=== PATIENT | female | born 1940 ===

== ENCOUNTER 2018-07-05 08:17 | Day surgery (SDC) | payer MEDICARE ==
--- NOTE | 2018-07-03 14:00 | HP ---
Amended report to enter cosigning physician. PREOPERATIVE HISTORY AND PHYSICAL: DATE OF SURGERY/ADMISSION: 07/05/18 DATE OF OFFICE VISIT/ENCOUNTER: 06/13/18 ATTENDING SURGEON: Jyothi Sullivan MD* (dictated by INNA Branch). PROCEDURE: Right wrist carpal tunnel release. HISTORY OF PRESENT ILLNESS: This is a 77-year-old female who complains of numbness and tingling in her bilateral hands, worse on the right than on the left. She has had trouble for several years. She had a nerve conduction study done 6 years ago, which showed bilateral mild carpal tunnel syndrome. The symptoms have progressed significantly recently especially in her right hand. She would now like to have treatment for it. She denies any specific injury and has worn braces over time, which are minimally helpful. She has trouble when sleeping, driving, holding a book, and playing tennis. She is interested in pursuing surgical intervention at this time. Her diver assistant is Dr. Scott from [place], and we will receive cardiac clearance before proceeding with surgery. PAST MEDICAL HISTORY: 1. History of atrial fibrillation, arrhythmias. 2. Arthritis. 3. History of breast cancer. 4. History of a questionable TIA with plaque buildup in carotid arteries. 5. History of ventricular tachycardia. PAST SURGICAL HISTORY: 1. Mastectomy in 2015. 2. Breast reconstruction. 3. Right shoulder surgery. 4. Breast lumpectomy. 5. Hysterectomy. CURRENT MEDICATIONS: 1. Arimidex 1 mg daily. 2. Aspirin 81 mg daily. 3. Benadryl Allergy 25 mg 1 tab daily p.r.n. 4. Centrum Silver Ultra daily. 5. Crestor 10 mg daily. 6. GNP Melatonin 3 mg daily. 7. Nadolol 20 mg daily. ALLERGIES: No known drug allergies. FAMILY MEDICAL HISTORY: Heart disease, stroke, melanoma. SOCIAL HISTORY: The patient is a retired teacher. She denies tobacco use and recreational drug use. She drinks alcohol on occasion. REVIEW OF SYSTEMS: Negative for general, cephalic, cardiovascular, respiratory , GI, , other musculoskeletal, integumentary, endocrine, neurologic, and hematologic symptoms. Infectious disease is negative for MRSA, hepatitis C, HIV. PHYSICAL EXAMINATION GENERAL: Well-developed, well-nourished 77-year-old female in no acute distress. VITAL SIGNS: Height 5 feet 3 inches, weight 126 pounds, pulse rate 58, blood pressure 122/78. HEENT: Normocephalic, atraumatic. Pupils are equal, round, and reactive to light and accommodation. Extraocular movements are intact. Throat is clear. NECK: Supple. No palpable lymph nodes. PULMONARY: Lungs are clear to auscultation bilaterally. No wheezes, rales, or rhonchi. CARDIOVASCULAR: Regular rate and rhythm. S1, S2. No murmurs, rubs, or gallops. No edema. ABDOMEN: Positive bowel sounds, soft, nontender. NEUROLOGIC: Alert and oriented x3. Cranial nerves II through XII are intact. MUSCULOSKELETAL: On exam of her bilateral hands, she has mild thenar wasting in both the right and left hands and weakness with thumb abduction. She has good motion in her fingers and intact sensation to light touch throughout the hand. Skin is intact. She has a positive median nerve compression test, more significant on the right than on the left. IMPRESSION: Bilateral carpal tunnel syndrome, more so on the right than on the left. PLAN: The patient is scheduled to undergo a right wrist carpal tunnel release with Dr. Sullivan on 07/05/18. She will return to the office 10 days postop for followup and suture removal. A prescription for Ultracet was e-scribed to the patient's pharmacy for postoperative pain management. INNA BRANCH [id number]/[facility] #: [id number] RUPALI
[~2018-07-05 08:17] MED LIST: Acetaminophen TAB* 325 MG ONE; Acetaminophen TAB* 325 MG PO ONE; Buffered Lidocaine 1% SYRIN* 1 ML/SYRINGE INTRADERM ONE; Gabapentin CAP(*) 300 MG ONE; Lactated Ringers 1000 ML Bag* 1,000 ML IV SCH; Lidocaine 1% INJ* 10 MG/ML 30 ML SDV ONE
[2018-07-05] MEDS: Gabapentin CAP(*) 300 MG PO ONE ×2 (08:48→09:03)
[2018-07-05] MEDS ORDERED: Naloxone* 0.4 MG/ML 1 ML VIAL IV PRN (09:35)
[2018-07-05] MEDS ORDERED: Ondansetron INJ* 2 MG/ML VIAL IV PRN (09:35)
[2018-07-05] MEDS ORDERED: fentaNYL* 50 MCG/ML 2 ML VIAL (100 MCG VIAL) ONE (09:41)
[2018-07-05] MEDS ORDERED: Propofol* 10 MG/ML 20 ML BTL ONE (09:42)
[2018-07-05] MEDS ORDERED: Lidocaine 2% PF * 5 ML VIAL ONE (09:42)
[2018-07-05 11:29] VITALS: BP 126/67
--- NOTE | 2018-07-05 13:29 | OP ---
DATE OF OPERATION: 07/05/18 [facility] DATE OF : 40 SURGEON: Jyothi Sullivan MD PROGRAMMER OPERATOR NUMERICAL CONTROL: INNA Branch ANESTHESIA: Local MAC. PRE-OP DIAGNOSIS: Right carpal tunnel syndrome. POST-OP DIAGNOSIS: Right carpal tunnel syndrome. OPERATIVE PROCEDURE: Right carpal tunnel release. ESTIMATED BLOOD LOSS: Zero. TOURNIQUET TIME: Approximately 10 minutes. INDICATIONS FOR PROCEDURE: Syeda is a 77-year-old female with numbness and tingling in the median nerve distribution of the right hand. She presents for right carpal tunnel release. DESCRIPTION OF PROCEDURE: The patient was brought to the operating room, was given a sedation anesthetic and a local infiltration of 10 cc of 1% plain lidocaine in the palm of her right hand. The skin of her right hand and forearm was prepped and draped in the usual sterile fashion. The hand and forearm were exsanguinated and the tourniquet elevated to 250 mmHg. A longitudinal incision was made in the palm in line with the ring finger. We dissected through the subcutaneous tissue down to the transverse carpal ligament. The ligament was divided sharply with a knife and then more proximally with the scissors. The nerve was dissected free from the surrounding tissue, and there is an area of moderate compression at the mid portion of the ligament. The wound was irrigated and the skin edges reapproximated with 4-0 nylon sutures. The wound was dressed with Xeroform, 4x4 , Webril and an Byron wrap. The patient tolerated the procedure well and was brought to the recovery room in good condition. [id number]/[facility] #: [id number] [facility] CENTERLuisa
== END 2018-07-05 11:22 | disposition home or self-care (01) ==
LOC: OREAST 08:17
PROVIDERS: ATTEND Orthopaedic Surgery
DX: G56.01 Carpal tunnel syndrome, right upper limb (principal); I47.2 Ventricular tachycardia; I47.1 Supraventricular tachycardia; E78.5 Hyperlipidemia, unspecified; Z85.3 Personal history of malignant neoplasm of breast; M19.90 Unspecified osteoarthritis, unspecified site; I10 Essential (primary) hypertension; I70.90 Unspecified atherosclerosis; Z87.891 Personal history of nicotine dependence; G47.33 Obstructive sleep apnea (adult) (pediatric)
CPT/HCPCS: A9270-GY; J2704; J3010

== ENCOUNTER 2018-10-15 06:32 | Day surgery (SDC) | payer MEDICARE, BC ==
--- NOTE | 2018-10-02 10:06 | HP ---
AMENDED REPORT NOW INCLUDES DESIGNATED COSIGNER PREOPERATIVE HISTORY AND PHYSICAL: DATE OF SURGERY/ADMISSION: 10/15/18 DATE OF OFFICE VISIT/ENCOUNTER: 09/30/18 ATTENDING SURGEON: Jyothi Sullivan MD * (DICTATED BY INNA MARTÍNEZ) PROCEDURE: Left wrist carpal tunnel release. HISTORY OF PRESENT ILLNESS: This is a 77-year-old female who complains of numbness and tingling in her left hand ongoing for several years that has progressively worsened. She had a nerve conduction study done 6 years ago, which showed mild carpal tunnel syndrome at that time, but the symptoms have progressed significantly recently. She denies any specific injury and has worn braces over time, which are minimally helpful. She has trouble with sleeping, driving, holding a book, and playing tennis. She had a right carpal tunnel release performed in June of 2018 and did quite well with that. She has now consented to proceed with a left wrist carpal tunnel release. Her fleet sales manager is Dr. Scott from [place], and we will receive cardiac clearance before proceeding with surgery. PAST MEDICAL HISTORY: 1. History of atrial fibrillation/arrhythmias. 2. Arthritis. 3. History of breast cancer. 4. History of a questionable TIA with plaque buildup in carotid arteries. 5. History of ventricular tachycardia. PAST SURGICAL HISTORY: 1. Mastectomy in 2015. 2. Breast reconstruction. 3. Right shoulder surgery. 4. Breast lumpectomy. 5. Hysterectomy. 6. Right carpal tunnel release. CURRENT MEDICATIONS: 1. Arimidex 1 mg daily. 2. Aspirin 81 mg daily. 3. Benadryl Allergy 25 mg 1 tab daily p.r.n. 4. Centrum Silver Ultra daily. 5. Crestor 10 mg daily. 6. GNP Melatonin 3 mg daily. 7. Nadolol 20 mg daily. ALLERGIES: No known drug allergies. FAMILY MEDICAL HISTORY: Heart disease, stroke, melanoma. SOCIAL HISTORY: The patient is a retired teacher. She denies tobacco use and recreational drug use. She drinks alcohol on occasion. REVIEW OF SYSTEMS: Negative for general, cephalic, cardiovascular, respiratory , GI, , other musculoskeletal, integumentary, endocrine, neurologic, and hematologic symptoms. Infectious Disease: Negative for MRSA, hepatitis C, HIV. PHYSICAL EXAMINATION GENERAL: Well-developed, well-nourished 77-year-old female, in no acute distress. VITAL SIGNS: Height 5 feet 3 inches, weight 127 pounds, pulse rate 60, blood pressure 130/80. HEENT: Normocephalic, atraumatic. Pupils are equal, round, and reactive to light and accommodation. Extraocular movements are intact. Throat is clear. NECK: Supple. No palpable lymph nodes. PULMONARY: Lungs are clear to auscultation bilaterally. No wheezes, rales, or rhonchi. CARDIOVASCULAR: Regular rate and rhythm. S1, S2. No murmurs, rubs, or gallops. No edema. ABDOMEN: Positive bowel sounds, soft, nontender. NEUROLOGIC: Alert and oriented x3. Cranial nerves II through XII are intact. MUSCULOSKELETAL: On exam of her left wrist/hand, she has mild thenar wasting and weakness with thumb abduction. She has good motion in her fingers and intact sensation to light touch throughout the hand. Skin is intact. She has a positive median nerve compression test. Negative Tinel's at the median nerve. IMPRESSION: Left carpal tunnel syndrome. PLAN: The patient is scheduled to undergo a left wrist carpal tunnel release with Dr. Sullivan on 10/15/18. She will return to the office 10 days postop for followup and suture removal. The patient will plan on a using [id number] Tylenol and/or ibuprofen for postoperative pain management. INNA MARTÍNEZ [id number]/[facility] #: [id number] [facility]OSPITALLuisa
[~2018-10-15 06:32] MED LIST changes: -Acetaminophen TAB* 325 MG ONE; -Acetaminophen TAB* 325 MG PO ONE; -Gabapentin CAP(*) 300 MG ONE; -Lidocaine 1% INJ* 10 MG/ML 30 ML SDV ONE
[2018-10-15] MEDS ORDERED: Lidocaine 1% INJ* 10 MG/ML 30 ML SDV ONE (07:09)
[2018-10-15] MEDS ORDERED: Midazolam* 1 MG/ML 2 ML VIAL (2 MG) ONE (07:23)
[2018-10-15] MEDS ORDERED: Propofol* 10 MG/ML 20 ML BTL ONE ×2 (07:23→07:24)
[2018-10-15] MEDS ORDERED: oxyCODONE TAB* 5 MG TAB PO PRN (07:54)
[2018-10-15] MEDS ORDERED: Ketorolac INJ* 30 MG/ML 1 ML VIAL IV PRN (07:54)
[2018-10-15] MEDS ORDERED: Ondansetron ODT TAB* 4 MG PO PRN (07:54)
[2018-10-15] MEDS ORDERED: Naloxone* 0.4 MG/ML 1 ML VIAL IV PRN (07:54)
[2018-10-15] MEDS ORDERED: Acetaminophen TAB* 325 MG PO PRN (07:54)
[2018-10-15 08:51] VITALS: BP 124/73
--- NOTE | 2018-10-15 10:54 | OP ---
CC: Dr. Sullivan OPERATIVE REPORT: DATE OF OPERATION: 10/15/18 DATE OF : 40 SURGEON: Jyothi Sullivan MD MARINE SURVEYOR: INNA Branch ANESTHESIA: Local MAC. PRE-OP DIAGNOSIS: Left carpal tunnel syndrome. POST-OP DIAGNOSIS: Left carpal tunnel syndrome. OPERATIVE PROCEDURE: Left carpal tunnel release. ESTIMATED BLOOD LOSS: Zero. TOURNIQUET TIME: Approximately 10 minutes. INDICATIONS FOR PROCEDURE: Syeda is a 77-year-old female who has numbness and tingling in the median nerve distribution of her left hand. She presents for left carpal tunnel release. DESCRIPTION OF PROCEDURE: The patient was brought to the operating room, was given a sedation anesth etic and a local infiltration of 10 cc of 1% plain lidocaine in the palm of her left hand. The skin of her left hand and forearm was prepped and draped in the usual sterile fashion. The hand and forea rm were exsanguinated and the tourniquet elevated to 250 mmHg. A longitudinal incision was made in t he palm in line with the ring finger, where it was dissected through the subcutaneous tissue down to the transverse carpal ligament. The ligament was divided sharply with a knife and then more proximal ly with the scissors. The nerve was dissected free from surrounding tissue. There was an area of mo derate compression in the mid portion of the ligament. The wound was irrigated and the skin edges we re reapproximated with 4-0 nylon suture. The wound was dressed with Xeroform, 4x4s, Webril, and an A ce wrap. The patient tolerated the procedure well and was brought to the recovery room in good condi tion. [id number]/[facility] #: [id number]
== END 2018-10-15 08:48 | disposition home or self-care (01) ==
LOC: OREAST 06:32
PROVIDERS: ATTEND Orthopaedic Surgery
DX: G56.02 Carpal tunnel syndrome, left upper limb (principal); I48.91 Unspecified atrial fibrillation; M19.90 Unspecified osteoarthritis, unspecified site; Z85.3 Personal history of malignant neoplasm of breast; Z87.891 Personal history of nicotine dependence; Z86.73 Personal history of transient ischemic attack (TIA), and cerebral infarction without residual deficits
CPT/HCPCS: J2250; J2704